=== PATIENT | male | born 1995 | race Caucasian/White ===

== ENCOUNTER 2025-04-11 04:57 | Emergency (ER) | payer MEDICAID, SELFPAY ==
[2025-04-11 04:59] VITALS: BMI 25.0
[2025-04-11 05:22] VITALS: BP 145/91; PULSE 108; RESP 16; TEMP 36.7; O2SAT 97
--- NOTE | 2025-04-11 05:25 | PD.EDRME ---
Rapid Medical Screening Exam E Arrival date/time: 04/11/25 04:57 This is a case of 30-year-old male with no medical history came into the emergency room due to right eye pain patient was grinding at home accidentally a piece of metal went to his right eye and started to have pain Chief Complaint: Eye Problems Time Seen by Provider: 04/11/25 05:22 Vital signs: Vital Signs Temperature 98.1 F 04/11/25 05:22 Pulse Rate 108 H 04/11/25 05:22 Respiratory Rate 16 04/11/25 05:22 Blood Pressure 145/91 H 04/11/25 05:22 Pulse Oximetry (%) 97 04/11/25 05:22 Oxygen Delivery Method Room Air 04/11/25 05:22 Exam: Noted a foreign body on the central cornea PERRL EOM intact conjunctiva right red Clinical Impression: Foreign body right cornea
[2025-04-11] MEDS: HYDROcodone/APAP 5/325 TABLET 1 TAB PO (05:51)
[2025-04-11] MEDS: TETRACAINE PF OP SOL 0.5% 4 ML DRPETTE 1 DROP RIGHT EYE (06:28)
[2025-04-11] MEDS: FLUORESCEIN SOD 1 MG STRP RIGHT EYE (06:29)
--- NOTE | 2025-04-11 06:55 | EDNOTE_ITS ---
<Statement entered by Grace Prado MD - 04/11/25 13:36> As co-signing physician, I was present and available for consult prn. I concur with the plan and care as documented by the midlevel provider. ED Eye Problem RME/HPI General Chief complaint: Eye Problems Stated complaint: PIECE OF METAL IN R EYE Time Seen by Provider: 04/11/25 05:22 Arrival date/time: 04/11/25 04:57 RME / HPI RME / HPI Narrative: 04/11/25 04:57 This is a case of 30-year-old male with no medical history came into the emergency room due to right eye pain patient was grinding at home accidentally a piece of metal went to his right eye and started to have pain 0 6:56 AM Patient complaining of right eye pain after grinding metal at home about 12 hours ago was a piece off of a trailer and he believes it is whitish metal. Denies any vision changes, nausea, vomiting, fever, headache. Patient states last tetanus shot was about 3 years ago. Exam: Noted a foreign body on the central cornea PERRL EOM intact conjunctiva right red Impression: Foreign body right cornea Related Data Previous Rx's ?Medication ?Instructions ?Recorded ibuprofen 800 mg tablet 800 mg PO TID PRN pain #30 t abs 11/08/21 amoxicillin 875 mg-potassium 1 tab PO BID #14 tabs clavulanate 125 mg tablet hydrocodone 5 mg-acetaminophen 325 1 tab PO Q8H PRN pa in #14 tabs 01/11/23 mg tablet ibuprofen 800 mg tablet 800 mg PO Q8H PRN pain #30 t abs 01/11/23 erythromycin 5 mg/gram (0.5 %) eye 0.5 inch ophthalmic (eye) QID 7 04/11/25 ointment days #50 grams ibuprofen 800 mg tablet 800 mg PO TID PRN pain #14 t abs 04/11/25 Allergies Allergy/AdvReac Type Severity Reaction Status Date / Time No Known Allergies Allergy Verified 04/11/25 05:03 ED Exam Narrative Physical exam: Constitutional: Vital Signs Reviewed. Well appearing. No acute distress. Not toxic appearing. Head: Normocephalic, atraumatic. Eyes: Right eye conjunctiva injected foreign body noted at 6 PM Periorbital regions normal to inspection and palpation bilaterally unless otherwise noted. Sclera anicteric bilaterally. Pupils equal, round, and reactive to light bilaterally. Extraocular movements intact bilaterally. Visual vazquez intact by confrontation bilaterally. No hyphema or hypopyon bilaterally. ENT: Mucous membranes moist. Neck: Trachea midline. Normal range of motion. No nuchal rigidity. Respiratory: Normal effort. No respiratory distress or accessory muscle use. Neuro: Alert and oriented. Speech normal. No focal gross motor or sensory deficits observed. Skin: Warm, dry, normal color. Psych: Pleasant. Normal affect. Cooperative. Course Course Course Narrative: I attempted an eye irrigation however patient did not tolerate the Alexi lens and removed it himself at around 8 AM by the RN Second attempt at foreign body removal performed at 8:15 AM and was successful with the bur hole additionally there was a rust ring present which was removed with the bur hole as well Patient tolerated procedure well Quality Measures none Orders Category Date Time Status Miscellaneous Nursing Order X1 Care 04/11/25 07:13 Completed Fluorescein Sodium [Bio-Liz] Med 04/11/25 05:09 Discontinued 1 mg RIGHT EYE X1 ONE HYDROcodone*/APAP 5/325 [Cavendish 5/325] Med 04/11/25 05:33 Discontinued 1 tab PO X1 ONE LORazepam [Ativan] Med 04/11/25 06:55 Discontinued 0.5 mg PO X1 ONE TETRACAINE Op Monique 0.5% [Pontocaine Op Monique 0.5%] Med 04/11/25 05:09 Discontinued 1 drop RIGHT EYE X1 ONE Reevaluation(s) Reevaluation #1: At the time of reassessment prior to discharge, the patient remains alert and oriented ?3 with GCS 15. Vitals are normal, pain is controlled, and the patient is tolerating oral intake without nausea or vomiting. The patient is agreeable to discharge and verbalizes understanding of the diagnosis, studies, treatment plan, medications (including side effects/precautions), and strict ER return precautions as discussed in the ED. All concerns were addressed, and the patient is comfortable with the plan. Time: 08:58 Vital Signs Vital signs: Vital Signs Temperature 98.1 F 04/11/25 05:22 Pulse Rate 108 H 04/11/25 05:22 Respiratory Rate 16 04/11/25 05:22 Blood Pressure 145/91 H 04/11/25 05:22 Pulse Oximetry (%) 97 04/11/25 05:22 Oxygen Delivery Method Room Air 04/11/25 05:22 PROCEDURES: FB Removal Eye Time Out performed: Yes Location: eye (R) Topical anesthetic used: tetracaine Foreign body: metal Evidence of corneal penetration: No Technique: needle and electric jose Procedure performed under: direct visualization with magnification Post-procedure medication: other Patient tolerated procedure: well and no complications Complications: residual rust ring and other De La Torre Lamp Exam Right eye: Flourescein uptake:: No De La Torre Lamp Findings: Normal Eye MDM Narrative MDM Narrative:: MDM Concern for metallic foreign body noted to right eye Doubt any other none superficial corneal/conjunctiva injury given lack of vision changes, photophobia, floaters, flashing lights, etc. Doubt Caustic keratoconjunctivitis (no perilimbal ischemia) No APD subjectively light is not dim. No hyphema. Doubt globe penetration (given negative seidels, No Teardrop-shaped pupil, No Subconjunctival hemorrhage involving entire (360 degree) sclera) Doubt Lens dislocation (No Diplopia, floaters, iris tremor) I attempted to perform a removal however patient was unable to keep his gaze straight therefore we will provide patient with Ativan and perform another attempt this was at 6:50 AM Plan for foreign body removal, ophthalmic abx prophylactically, f/u with pmd and optho in 1-2 days, strict ER return precautions advised Patient data External records reviewed:: [facility] previous records Clinical information provided by:: patient Social determinants that could affect healthcare access:: none Patient has the following chronic illnesses:: As noted How is presenting disease/condition affected by chronic disease/condition?: no chronic disease Evaluation data The following diagnostics were reviewed and interpreted by me:: other (specify) Lab and/or radiology exams considered but not ordered:: Additional Labs and radiology considered, but not ordered as they were not clinically indicated at this time. Interpretation Summary: Not applicable Medications / Prescriptions Medications or Prescriptions considered but not ordered:: I ordered medications based on the patient?s clinical needs and assessment, as documented in the chart. For medications not prescribed, they were not indicated for the patient's current condition, and I determined they were unnecessary at this time to avoid potential risks or complications. Medication administrations:: Medication Administration History Discontinued Medications Hydrocodone Bitart/Acetaminophen (Hydrocodone/Apap 5/325 Tablet) 1 tab PO X1 ONE Stop: 04/11/25 05:34 Last Admin: 04/11/25 05:51 Dose: 1 tab Documented By: LO Fluorescein Sodium (Fluorescein Sod 1 Mg Strp) 1 mg RIGHT EYE X1 ONE Stop: 04/11/25 05:10 Last Admin: 04/11/25 06:29 Dose: 1 mg Documented By: LO Lorazepam (Lorazepam 0.5 Mg Tablet) 0.5 mg PO X1 ONE Stop: 04/11/25 06:56 Last Admin: 04/11/25 07:11 Dose: 0.5 mg Documented By: JESSICA Tetracaine HCl (Tetracaine Pf Op Monique 0.5% 4 Ml Drpette) 1 drop RIGHT EYE X1 ONE Stop: 04/11/25 05:10 Last Admin: 04/11/25 06:28 Dose: 1 drop Documented By: LO As noted Consultations Consultation(s) initiated? (list below): No Diagnosis Eye Problem Differential Diagnosis: corneal abrasion and other Most likely diagnosis given after review of the tests above:: Metallic corneal foreign body complicated by rust ring Admission Indicated Admission indicated?: not indicated Admission Request Was there a request for admission?: No Disposition Plan Disposition Plan: Discharge Discharge Attestation Discharge Attestation: The patient and all family members were given an opportunity to ask questions and understood the discharge instructions. Discharge instructions specifically effects, indications for sooner follow up or return to the emergency department, and the expected course of current diagnosis. Patient condition: Stable Discharge Plan Plan Patient Disposition: HOME (Self Care) Patient condition on transfer: Stable Prescriptions/Referrals Prescriptions/Med Rec: New erythromycin 5 mg/gram (0.5 %) ointment 0.5 inch ophthalmic (eye) QID 7 Days Qty: 50 0RF Rx Instructions: and at night before bed in affected eye ibuprofen 800 mg tablet 800 mg PO TID PRN (Reason: pain) Qty: 14 0RF Rx Instructions: take with food and 8 oz of water No Action ibuprofen 800 mg tablet 800 mg PO TID PRN (Reason: pain) Qty: 30 0RF amoxicillin-pot clavulanate 875-125 mg tablet 1 tab PO BID Qty: 14 0RF ibuprofen 800 mg tablet 800 mg PO Q8H PRN (Reason: pain) Qty: 30 0RF hydrocodone-acetaminophen 5-325 mg tablet 1 tab PO Q8H MDD 3 tablets/day PRN (Reason: pain) Qty: 14 0RF Referrals: No Primary/Family,Physician [Primary Care Provider] - In 1 week Problem List Clinical Impression: Corneal foreign body Patient/Caregiver Discharge Instructions Education Materials: ED Corneal Foreign Body, Removed, ED RUST RING Additional Instructions: Follow up with your primary medical doctor and an broommaker within 48 hours. Return to the Emergency Room immediately for any new, worsening, continuing symptoms or any concerns at all. Return to the Emergency Room within 48 hours if you are unable to follow up with your primary medical doctor and an broommaker within 48 hours. Print Language: Eritrean Stand Alone Forms: Adrienne Award Info., Patient Portal Info Letter PA/CHUCKING LATHE OPERATOR Supervising Physician PA/JUANITO Supervising Physician: Dr. Prado
--- NOTE | 2025-04-11 08:00 | PC.NURSE ---
EYE IRRIGATION TO PT'S R EYE WITH HAROON LENS PERFORMED WITH ABOUT 250CC OF NS.
== END 2025-04-11 08:54 | disposition home or self-care (01) ==
PROVIDERS: Emergency Provider Emergency Medicine
DX: T15.01XA Foreign body in cornea, right eye, initial encounter (principal); W44.8XXA Other foreign body entering into or through a natural orifice, initial encounter
CPT/HCPCS: 65205; 99282; A9270